=== PATIENT | female | born 1970 | race Caucasian/White ===

== ENCOUNTER → 2017-04-09 | Outpatient (CLI) | payer BC ==
[~2017-04-09] MED LIST: ALBUAER2 INH; IBUP-1428 PO; LXP10 PO; NRN/300 PO
== END | disposition home or self-care (01) ==
LOC: C.PAPS 16:09
PROVIDERS: ATTEND Obstetrics & Gynecology
DX: Z01.419 Encounter for gynecological examination (general) (routine) without abnormal findings (principal)

== ENCOUNTER → 2017-11-16 | Outpatient (CLI) | payer BC ==
[~2017-11-16] MED LIST changes: +ESCI1TAB10 PO; +GABA-113 PO; +VNTHFA/IN INH
--- NOTE | 2017-11-16 16:12 | DIAGNOSTIC IMAGING REPORT ---
RIGHT WRIST MRI HISTORY: RT WRIST PAIN/CYST TECHNIQUE: Multiplanar multisequence MRI of the right wrist was performed without the use of intravenous contrast. COMPARISON STUDY: Right wrist MRI 12/30/2014. FINDINGS: There is one versus 2 separate multiloculated cysts seen within the radial side of the wrist. These have slightly decreased in size. These connect to the radiocarpal joint and are therefore consistent with ganglion cysts. Dominant multiloculated cyst measures approximately 13 x 9 mm. No fracture or dislocation within the wrists. There is also an additional ganglion cyst along the ulnar side of the wrist which measures approximately 18 x 7 mm. This is located between the lunate and pisiform bones. This is similar in size compared to the prior study. The dorsal and volar tendons are normal in course, caliber, and signal intensity. The median nerve demonstrates a normal signal intensity. The scapholunate and lunotriquetral ligaments are intact. Increased signal within the ulnar attachment of the triangle fibrocartilage suggestive of a partial tear. IMPRESSION: 1. Slight decrease in size in the ganglion cysts at the radial side of the wrist. 2. No significant change in the ganglion cyst at the ulnar side of the wrist as described above. 3. Increased signal at the ulnar attachment of the triangular fibrocartilage suggestive of a partial tear. Electronically signed by: Walter Zamora M.D. 11/16/2017 4:11 PM Dictated Date/Time: 11/16/2017 4:01 PM
== END | disposition home or self-care (01) ==
LOC: C.MRIBC 14:32
PROVIDERS: ATTEND Orthopaedic Surgery
DX: M25.531 Pain in right wrist (principal); M67.431 Ganglion, right wrist

== ENCOUNTER 2017-11-17 00:56 | Emergency (ER) | payer BC ==
[~2017-11-17] VITALS: Ht 158.8 cm; Wt 47.5 kg
[~2017-11-17 00:56] MED LIST changes: -ESCI1TAB10 PO; -GABA-113 PO; -VNTHFA/IN INH
[2017-11-17 00:57] VITALS: TEMP 36.3; Ht 158.8 cm; Wt 47.5 kg
[2017-11-17 01:15] VITALS: O2SAT 96
[2017-11-17 02:17] LABS: BUN/CREATININE RATIO 6.7 (10-20); CALCIUM 8.3 mg/dl (8.5-10.1); CREATININE 0.63 mg/dl (0.60-1.20); POTASSIUM 3.5 mmol/L (3.5-5.1)
[2017-11-17 02:20] VITALS: BP 111/75; PULSE 78; O2SAT 100
[2017-11-17] MEDS ORDERED: ESCI1TAB10 PO (02:35)
[2017-11-17] MEDS ORDERED: GABA-113 PO (02:36)
[2017-11-17] MEDS ORDERED: VNTHFA/IN INH (02:38)
--- NOTE | 2017-11-17 03:23 | EMERGENCY ROOM VISIT NOTE ---
History First contact with patient: 01:03 Chief Complaint: FALL Stated Complaint: INTOXICATED,FELL HIT HEAD,UNCONSIOUS History of Present Illness The patient is a 47 year old female who presents to the Emergency Room with complaints of alcohol intoxication who kept on falling and hit her head. Patient states she drank beer and had shots at the bar. Family brought her in as she is more intoxicated than normal and was falling and hitting her head. Patient states she tripped. Patient denies chest pain, dyspnea, abdominal pain , headache, neck pain, leg pain, numbness, tingling, drug use or any other medical complaints. Patient denies history of alcohol withdrawal seizures or DTs. Review of Systems See HPI for pertinent positives & negatives. A total of 10 systems reviewed and were otherwise negative. Past Medical/Surgical History Medical Problems: (1) Alcohol use disorder (2) Asthma (3) Depression (4) Major depressive disorder, recurrent episode with anxious distress Surgical Problems: (1) H/O: hysterectomy Family History Depression Social History Smoking Status: Current Every Day Smoker Alcohol Use: heavy Drug Use: none Marital Status: Housing Status: lives with family Occupation Status: employed Current/Historical Medications Scheduled Escitalopram Oxalate (Lexapro), 20 MG PO DAILY Gabapentin (Neurontin), 300 MG PO BID Scheduled PRN Albuterol Hfa (Ventolin Hfa), 2 PUFFS INH Q6H PRN for SOB/Wheezing Ibuprofen (Motrin), 800 MG PO DIRECTED PRN for Pain Physical Exam Vital Signs Date Time Temp Pulse Resp B/P (MAP) Pulse Ox O2 Delivery O2 Flow Rate FiO2 11/17/17 02:20 78 18 111/75 100 Room Air 11/17/17 01:15 96 Room Air 11/17/17 01:15 96 Room Air 11/17/17 00:57 36.3 84 18 109/73 98 Room Air Physical Exam VITALS: Vitals are noted on the nurse's note and reviewed by myself. Vital signs stable. GENERAL: White female with EtOH odor, in no acute distress, nondiaphoretic, well -developed well-nourished. SKIN: The skin was without rashes, erythema, edema, or bruising. There is no tenting of the skin. Capillary reflex less than 2 seconds. HEAD: Normocephalic atraumatic. EARS: External auditory canals clear, tympanic membranes pearly anguiano without erythema or effusion bilaterally. EYES: Pupils equal round and reactive to light and accommodation. Conjunctivae with injection, sclerae without icterus. Extraocular movements intact. NOSE: Patent, turbinates without inflammation or discharge. No sinus tenderness. MOUTH: Mucous membranes moist. Pharynx without erythema or exudate. Uvula midline. Airway patent. Tongue does not deviate. NECK: Supple without nuchal rigidity. No lymphadenopathy. No thyromegaly. Cervical spine is nontender. No JVD. HEART: Regular rate and rhythm without murmurs gallops or rubs. LUNGS: Clear to auscultation bilaterally without wheezes, rales or rhonchi. No dullness to percussion. No retractions or accessory muscle use. ABDOMEN: Positive bowel sounds x 4. Normal tympanic percussion. Soft, nontender, without masses or organomegaly. Wiseman sign negative. No guarding or rebound tenderness. MUSCULOSKELETAL: No muscle atrophy, erythema, or edema noted. NEURO: Patient was alert and oriented to person place and time. Normal sensation to light and sharp touch. No focal neurological deficits. Medical Decision & Procedures Laboratory Results 11/17/17 01:44 Test 11/17/17 01:44 Anion Gap 8.0 mmol/L (3-11) Est Creatinine Clear Calc Drug Dose 82.8 ml/min Estimated GFR () 123.8 Estimated GFR (Non- 106.8 BUN/Creatinine Ratio 6.7 (10-20) Calcium Level 8.3 mg/dl (8.5-10.1) Ethyl Alcohol mg/dL 295.0 mg/dl (0-3) ED Course Prior records/ancillary studies reviewed. Triage Nursing notes reviewed. Additional history obtained from family The patient's history was concerning for alcohol intoxication with head injury Differential diagnosis: Etiologies such as alcohol intoxication, toxicologic, infection, hypoglycemia, electrolyte abnormalities, cardiac sources, intracerebral event, neurologic, as well as others were entertained. Physical examination: As above. The patient is clinically intoxicated. no trauma noted. ER treatment provided: Monitoring Aspiration precautions The patient was frequently reassessed. Diagnostic interpretation by me: Cardiac monitoring did not reveal any evidence of dysrhythmia. The labs revealed no worrisome electrolyte abnormality. The patient's blood alcohol level was 295 mg/dL. Imaging studies: Head and neck CT negative for intracranial bleed or fracture per radiology This appears to be consistent with an overdose of alcohol and fall with hitting her head. Patient was offered information on rehabilitation and declined. Patient was strongly encouraged to seek help for this. Patient is advised to rest, stay well-hydrated and follow-up family care in a few days or here in the ER sooner for headache, fevers, confusion, worsening signs or symptoms or as needed. She is discharged home in the care of her who is willing to care for her. Patient ambulated out of the ER without difficulties. By the evaluation outlined above emergent etiologies such as trauma, infection, hypoglycemia, electrolyte abnormalities, cardiac sources, intracerebral event, neurologic,as well as others were deemed relatively unlikely. The patient was informed about the findings as listed above. The patient was counseled on the dangers of excessive alcohol use. I gave my usual and customary discussion regarding this issue. All questions were answered and the patient was pleased with the treatment. Return instructions were outlined and the patient was discharged in stable condition once their mental status improved and a safe destination was confirmed. Outpatient prescription management: None Referral: The patient was referred back to their primary care physician for follow-up in 2 to 3 days for a recheck of their current condition. The chart was completed utilizing [employer] Speech voice recognition software. Grammatical errors, random word insertions, pronoun errors, and incomplete sentences are an occassional consequence of this system due to software limitations, ambient noise, and hardware issues. Any formal questions or concerns about the content, text, or information contained within the body of this dictation should be directly addressed to the physician events and promotions assistant for clarification. Medical Decision As above Medication Reconcilliation Current Medication List: was personally reviewed by me Blood Pressure Screening Patient's blood pressure: Normal blood pressure Impression Primary Impression: Alcohol abuse Additional Impressions: Head injury Fall Departure Information Dispostion Home / Self-Care Condition GOOD Forms HOME CARE DOCUMENTATION FORM, IMPORTANT VISIT INFORMATION Patient Instructions Alcohol Abuse - [facility], [facility] Additional Instructions Recommend that you seek help for your alcoholism. Keep well-hydrated. Tylenol every 6 hours as needed for pain (Maximum 3000 mg Tylenol in 24 hr period). Follow up with family doctor as needed. No driving for the next 24 hours. Recommend no alcohol for the next 48 hours and avoid binge drinking in the future. Return to ER sooner for chest pain, abdominal pain, worsening signs or symptoms or as needed. Problem Qualifiers
--- NOTE | 2017-11-17 06:33 | DIAGNOSTIC IMAGING REPORT ---
HEAD CT NONCONTRAST CT DOSE: 909.02 mGy.cm HISTORY: etoh, fall, head injury TECHNIQUE: Multiaxial CT images of the head were performed without the use of intravenous contrast. Automated exposure control was utilized for this study. A dose lowering technique was utilized adhering to the principles of ALARA. Comparison: None. Findings: The paranasal sinuses and mastoid air cells are clear. The calvarium and skull base are intact. The ventricles and sulci are within normal limits. There is no mass, hematoma, midline shift, or acute infarct. Impression: No acute intracranial abnormality. Electronically signed by: Walter Zamora M.D. 11/17/2017 6:31 AM Dictated Date/Time: 11/17/2017 6:30 AM
--- NOTE | 2017-11-17 06:35 | DIAGNOSTIC IMAGING REPORT ---
CERVICAL SPINE CT CT DOSE: HISTORY: etoh, fall, head injury TECHNIQUE: Multiaxial CT images of the cervical spine were performed and reformatted in the sagittal and coronal plane without the use of contrast. A dose lowering technique was utilized adhering to the principles of ALARA. COMPARISON: None. FINDINGS: No fractures. No subluxation. Prevertebral soft tissues and the C1-C2 interval are intact. No pneumothorax. Mild degenerative changes at C5-6 and C6-7. IMPRESSION: No fractures within the cervical spine. Electronically signed by: Walter Zamora M.D. 11/17/2017 6:34 AM Dictated Date/Time: 11/17/2017 6:32 AM
== END 2017-11-17 03:13 | disposition home or self-care (01) ==
LOC: C.EDB 00:57
DX: F10.129 Alcohol abuse with intoxication, unspecified (principal); Y90.8 Blood alcohol level of 240 mg/100 ml or more; S09.90XA Unspecified injury of head, initial encounter; W22.8XXA Striking against or struck by other objects, initial encounter; J45.909 Unspecified asthma, uncomplicated; F32.9 Major depressive disorder, single episode, unspecified; F17.200 Nicotine dependence, unspecified, uncomplicated; Z90.710 Acquired absence of both cervix and uterus; Z79.899 Other long term (current) drug therapy; Z81.8 Family history of other mental and behavioral disorders

== ENCOUNTER → 2018-04-16 | Outpatient (CLI) | payer OTHER ==
[~2018-04-16] MED LIST changes: -ALBUAER2 INH; +ESCI1TAB10 PO; +GABA-113 PO; -LXP10 PO; -NRN/300 PO; +VNTHFA/IN INH
== END | disposition home or self-care (01) ==
LOC: C.PAPS 17:35
PROVIDERS: ATTEND Obstetrics & Gynecology
DX: Z12.4 Encounter for screening for malignant neoplasm of cervix (principal)